=== PATIENT | female | born 1925 | race Caucasian/White ===

== ENCOUNTER 2017-01-28 14:00 | Emergency (ER) | payer MEDICARE, BC ==
--- NOTE | ~2017-01-28 | CT4 ---
[facility] A Service of [facility] RADIOLOGY TEXT RESULTS PATIENT: GIOVANNI SAENZ LOCATION: SED : [birth year] UNIT #: [id number] AGE: [address]: Rich Burnette MD SEX: F ORDER DR: [id number] [place] [id number] E MR#: [id number] Acc #: [id number] NAME: GIOVANNI SAENZ : 1925 SEX: F STUDY DATE/TIME: 01/28/2017 1552 UNIT: SED ROOM: STUDY DESCRIPTION: CT Abd and Pelv Wo Cont Attending Physician: Rich Burnette M.D. Ordering Physician: Rich Burnette M.D. Primary Care Physician: Josiah Vaughn Jr., M.D. MEDICAL IMAGING REPORT This report is preliminary unless electronic signature is present. EXAM CT abdomen and pelvis without contrast 01/28/2017 1552 hours CLINICAL HISTORY 89-year-old woman with 3-day history of constipation and nausea. COMPARISON CT abdomen 12/04/2012 TECHNIQUE Helical noncontrasted images were obtained from the lung bases through the pubic symphysis. Sagittal and coronal reconstructions were performed. Total exam DLP 861 mGy-cm. This CT exam was performed with one or more of the following radiation dose reduction techniques: automatic exposure control, adjustment of mA and/or kV according to patient size, and iterative reconstruction. FINDINGS Images through the lung bases demonstrate a moderately large paraesophageal hiatal hernia similar to prior study. There is some linear atelectasis or scar at the left base. There is no pleural effusion or pneumothorax. a pacer device is present in the heart. Images through the abdomen demonstrate a normal appearance to the liver, spleen, pancreas, gallbladder and bile ducts. The adrenal glands are remarkable for normal right adrenal gland. The left adrenal gland is enlarged with a 2.4 x 1.7 cm low-density nodule measuring only 6 Hounsfield units diagnostic of an adenoma. This previously measured 2.0 cm. It is benign in characteristics. The kidneys demonstrate no specific mass or stone. There is no pelvocaliectasis or ureterectasis. No ureteral calculi are seen. The [facility] A Service of [facility] RADIOLOGY TEXT RESULTS PATIENT: GIOVANNI SAENZ LOCATION: [place] : [birth year] UNIT #: [id number] AGE: [address]: Rich Burnette MD SEX: F ORDER DR: bladder is normal. The stomach demonstrates a large paraesophageal hiatal hernia but is otherwise normal. The small bowel is nondilated. There is however an abnormal appearance to loops of small bowel in the left mid abdomen with epicenter around image [id number]. There is thick-walled loop of bowel with stranding of the adjacent fat and small bubbles of air which could be extraluminal. There is no free air seen elsewhere. This inflammation is on the mesentery side of the bowel and separate from the adjacent colon which appears normal. The loops involved are likely proximal jejunum. The distal small bowel is normal and decompressed. Terminal ileum and appendix are normal. There is moderate stool in the ascending colon, transverse colon with no increased stool or distension in the descending colon or rectosigmoid colon. There are uncomplicated diverticula in the sigmoid colon. Pelvis is negative. IMPRESSION 1. There is an abnormal loop or loops of small bowel in the left mid abdomen which I believe are likely proximal jejunal loops. These are focally thickened with linear injection of the mesenteric fat and the surrounding fat with small bubbles of air present which could be in the wall or extraluminal. There is no abscess or fluid collection seen. Most of the inflammation is on the mesenteric side of the bowel separate from the adjacent descending colon which appears normal and uninvolved. There is no free air seen elsewhere and there is no abscess at this time. The etiology for this finding is not clear. 2. The distal small bowel is normal. 3. Normal appendix. 4. The colon demonstrates moderate stool in the right colon and transverse colon. Increased stool is not seen in the descending colon or rectosigmoid colon. 5. Moderate-sized paraesophageal hiatal hernia. 6. Fat density umbilical hernia unchanged. 7. Uncomplicated diverticulosis of the sigmoid colon. STAT * RESULT Dictated by... Maria Esther Coffman M.D. THIS IS AN ELECTRONICALLY VERIFIED REPORT Maria Esther Coffman M.D. at 01/28/2017 5:19 PM MAUREEN/eloy [facility]. [facility] A Service of [facility] & [facility] RADIOLOGY TEXT RESULTS PATIENT: GIOVANNI SAENZ LOCATION: [facility] : [birth year] UNIT #: [id number] AGE: [address]: Rich Burnette MD SEX: F ORDER DR: TD: 01/28/2017 16:28 JOB #: [id number] MEDICAL IMAGING REPORT Page 1 of 1
[~2017-01-28 14:00] MED LIST: ASPIRIN PO; CALAN PO; FOLBIC PO; IMDUR PO; LASIX PO; LIPITOR PO; LOPRESSOR PO; NITROGYLCERIN SUBLINGUAL; PLAVIX PO; TEMAZEPAM PO; VICODIN 5/500 T1 TAB PO
[2017-01-28] MEDS ORDERED: ZANAFLEX (14:03)
[2017-01-28] MEDS ORDERED: K-DUR20 ME2 (14:03)
[2017-01-28] MEDS ORDERED: BACTRIM 400-801 EACH (14:04)
[2017-01-28] MEDS ORDERED: NORVASC (14:04)
[2017-01-28] MEDS ORDERED: ARICEPT (14:04)
[2017-01-28] MEDS ORDERED: LASIX (14:04)
[2017-01-28] MEDS ORDERED: PRILOSEC (14:04)
[2017-01-28] MEDS ORDERED: AMITIZA8 MCG (14:04)
[2017-01-28] MEDS ORDERED: TOPROL XL (14:04)
[2017-01-28] MEDS ORDERED: LIPITOR20 MG (14:04)
[2017-01-28] MEDS ORDERED: XARELTO10 MG (14:04)
[2017-01-28 15:10] LABS: BASOPHIL# 0.1 X10e3 (0-0.3); BASOPHIL% 0.7 % (0-2.5); EOSINOPHIL# 0.1 X10e3 (0-0.7); EOSINOPHIL% 0.9 % (0.0-7.0); HEMATOCRIT 34.4 % (35.0-45.0); LYMPHOCYTE# 0.7 X10e3 (1.0-3.5); LYMPHOCYTE% 8.8 % (17.0-45.0); MEAN CELL VOLUME 82.2 FL (83-96); MEAN CORPUSCULAR HEMOGLOBIN 26.3 PG (28-34); MEAN PLATELET VOLUME 10.8 FL (6.5-11.5); MONOCYTE# 0.6 X10e3 (0-1.0); MONOCYTE% 7.7 % (3.0-12.0); NEUTROPHIL# 6.6 X10e3 (1.5-7.1); NEUTROPHIL% 81.9 % (40-75); PLATELET COUNT 167 X10e3 (140-420); RED BLOOD COUNT 4.19 X10e (3.90-5.30); RED CELL DISTRIBUTION WIDTH 17.7 % (11.0-15.5); WHITE BLOOD COUNT 8.1 X10e3 (4.0-10.5)
[2017-01-28 15:25] LABS: DIFF IND NO
[2017-01-28 15:36] LABS: ALBUMIN SERUM 3.2 g/dL (3.5-5.0); BILIRUBIN, DIRECT 0.1 mg/dL (0.0-0.2); BILIRUBIN,INDIRECT 0.3 mg/dL (0.0-0.9); BILIRUBIN,TOTAL 0.4 mg/dL (0.2-2.0); BUN/CREATININE RATIO 21.17; CALCIUM SERUM 9.9 mg/dL (8.4-10.2); CREATININE SERUM 1.7 mg/dL (0.6-1.4); GLOM FILT RATE Estimated 26.3 mL/min (>60); POTASSIUM 4.6 mmol/L (3.5-5.1); PROTEIN TOTAL SERUM 6.9 g/dL (6.0-8.3)
[2017-01-28 15:51] LABS: URINE SOURCE CLEAN CATCH
[2017-01-28 15:54] LABS: URINE APPEARANCE CLEAR; URINE BILIRUBIN NEG (NEG); URINE BLOOD NEG (NEG); URINE COLOR YELLOW; URINE GLUCOSE NEG (NORM); URINE KETONE NEG (NEG); URINE LEUKOCYTE ESTERASE 1+ (NEG); URINE NITRATE NEG (NEG); URINE PROTEIN NEG (NEG); URINE UROBILINOGEN 0.2 MG/DL (NORM)
[2017-01-28 16:06] LABS: MICRO INDICATED? YES
[2017-01-28 16:07] LABS: CULTURE INDICATED? YES; URINE BACTERIA 1+ (NEG); URINE RBC 0-2 /[HPF] (0-2); URINE SQUAMOUS EPITHELIAL CELL MODERATE /[HPF]
== END 2017-01-28 21:25 ==
LOC: SED 14:00
PROVIDERS: Emergency Medicine
DX: N39.0 Urinary tract infection, site not specified (principal); K63.1 Perforation of intestine (nontraumatic); I12.9 Hypertensive chronic kidney disease with stage 1 through stage 4 chronic kidney disease, or unspecified chronic kidney disease; N18.9 Chronic kidney disease, unspecified; E78.5 Hyperlipidemia, unspecified; Z79.899 Other long term (current) drug therapy
CPT/HCPCS: 36415; 74176; 80048; 80076; 81003; 82150; 83690; 85025; 87086; 96361; 96374; 96375; 99285; J1885; J2405; J2543